=== PATIENT | male | born 1980 | race American Indian/Alaskan Native ===

== ENCOUNTER 2016-12-24 14:45 | Emergency (ER) | payer SELFPAY ==
[2016-12-24] MEDS ORDERED: NORCO 7.5/325 PO ONE (20:40)
[2016-12-24] MEDS ORDERED: TORADOL IM ONE (20:41)
[2016-12-24] MEDS ORDERED: TORADOL ONE (20:52)
--- NOTE | 2016-12-24 21:34 | Emergency Department Report ---
Abscess Boil HPI - HPI Chief Complaint: Skin/Abscess/Foreign Body Stated Complaint: SWOLLEN FACE/PAIN FACE/HEAD Duration: 2 Days Location: Other (left outer jaw) Severity: Mild History: Yes Pain, Yes Purulent Drainage, No Fever, No Numbness, No Foreign Body , No Previous History, No Insect Bite HPI: 36 year old male presents to ED with left outer lower jaw abscess. patient states he went to [facility] to get haircut and noticed an abscess on left outer lower jaw 2 days after. patient states he attempted to I&D abscess at home and got moderate amount of purulent drainage. patient is stable, neurologically intact and in no acute distress. Home Medications: Previous Rx's Medication Instructions Recorded Last Taken Type Cyclobenzaprine [Flexeril] 10 mg PO TID PRN #20 tablet 01/28/16 Unknown Rx Ibuprofen [Motrin 800 MG tab] 800 mg PO Q8HR PRN #30 tablet 01/28/16 Unknown Rx Meloxicam [Mobic] 7.5 mg PO QDAY #5 tablet 12/24/16 Unknown Rx Sulfamethoxazole/Trimethoprim 1 each PO BID #14 tablet 12/24/16 Unknown Rx [Bactrim DS TAB] Allergies/Adverse Reactions: Allergies Allergy/AdvReac Type Severity Reaction Status Date / Time No Known Allergies Allergy Verified 01/28/16 08:31 ED Review of Systems ROS: Stated complaint: SWOLLEN FACE/PAIN FACE/HEAD Other details as noted in HPI Constitutional: denies: chills, fever Eyes: denies: eye pain, eye discharge, vision change ENT: denies: ear pain, throat pain Respiratory: denies: cough, shortness of breath, wheezing Cardiovascular: denies: chest pain, palpitations Endocrine: no symptoms reported Gastrointestinal: denies: abdominal pain, nausea, diarrhea Genitourinary: denies: urgency, dysuria Musculoskeletal: denies: back pain, joint swelling, arthralgia Skin: other (left outer jaw abscess). denies: rash, lesions Neurological: denies: headache, weakness, numbness, paresthesias, confusion, abnormal gait, vertigo Psychiatric: denies: anxiety, depression Hematological/Lymphatic: denies: easy bleeding, easy bruising ED Past Medical Hx - Past Medical History Previous Medical History?: Yes Additional medical history: [facility] 2003 - Surgical History Past Surgical History?: Yes Additional Surgical History: [facility] 2003. COLOSTOMY WITH REVERSAL. TRACH - Social History Smoking Status: Never Smoker Substance Use Type: Marijuana - Medications Home Medications: Home Medications Medication Instructions Recorded Confirmed Last Taken Type Cyclobenzaprine [Flexeril] 10 mg PO TID PRN #20 tablet 01/28/16 Unknown Rx Ibuprofen [Motrin 800 MG tab] 800 mg PO Q8HR PRN #30 tablet 01/28/16 Unknown Rx Meloxicam [Mobic] 7.5 mg PO QDAY #5 tablet 12/24/16 Unknown Rx Sulfamethoxazole/Trimethoprim 1 each PO BID #14 tablet 12/24/16 Unknown Rx [Bactrim DS TAB] ED Abscess Boil Physical Exam - Exam General: Vital signs noted. No distress. Alert and acting appropriately. Size: 2 cm Exam: Yes Tenderness, Yes Fluctuance, Yes Normal Neurologic Exam, Yes Normal Circulation, No Surrounding Cellulites/Erythema, No Lymphangitis, No Crepitation , No Heart Murmur I & D Note - I & D Note I & D Note: betadine and 5ccs of lido without epi applied to site of left outer lower jaw. 11 blade scalpel used for incision and moderate amount of purulent drainage obtained during drainage. patient tolerated procedure well. ED Course Vital Signs 12/24/16 15:44 Temperature 98.6 F Pulse Rate 53 L Respiratory 20 Rate Blood Pressure 121/96 O2 Sat by Pulse 100 Oximetry Critical care attestation.: If time is entered above; I have spent that time in minutes in the direct care of this critically ill patient, excluding procedure time. ED Medical Decision Making - Medical Decision Making 36 year old male presents to ED with left outer lower jaw abscess. patient tolerated I&D well. patient will be placed on PO antibiotics and agrees and understands to return to ED for re check within 2-3 days. ED Disposition Clinical Impression: Abscess of face Disposition: DC-01 TO HOME OR SELFCARE Is pt being admited?: No Does the pt Need Aspirin: No Condition: Stable Instructions: Abscess Incision and Drainage (ED) Additional Instructions: Please return to ED within 2-3 days for abscess re check Prescriptions: Meloxicam [Mobic] 7.5 mg PO QDAY #5 tablet Sulfamethoxazole/Trimethoprim [Bactrim DS TAB] 1 each PO BID #14 tablet Referrals: PRIMARY CARE, [Primary Care Provider] - 2-3 Days
[2016-12-24] MEDS ORDERED: TRIPLE ANTIBIOTIC TP ONE (21:35)
[2016-12-24 21:48] VITALS: BP 123/78
== END 2016-12-24 21:50 | disposition home or self-care (01) ==
LOC: ED 14:45
DX: M27.2 Inflammatory conditions of jaws (principal); F12.10 Cannabis abuse, uncomplicated
CPT/HCPCS: 10060; 96372; 99282; J1885; A6250

== ENCOUNTER 2017-03-17 01:37 | Emergency (ER) | payer SELFPAY | END 2017-03-17 02:00 | disposition left against medical advice (07) | LOC: ED 01:37 | DX: R52 Pain, unspecified (principal); Z53.21 Procedure and treatment not carried out due to patient leaving prior to being seen by health care provider ==

== ENCOUNTER 2017-06-17 02:22 | Emergency (ER) | payer SELFPAY ==
[2017-06-17 02:38] VITALS: BP 107/73
== END 2017-06-17 08:20 ==
LOC: ED 02:22
DX: R05 Cough (principal); Z53.21 Procedure and treatment not carried out due to patient leaving prior to being seen by health care provider